=== PATIENT | male | born 1965 | race Hispanic/Latino ===

== ENCOUNTER 2017-02-07 16:06 | Emergency (ER) | payer OTHER ==
[~2017-02-07] VITALS: Ht 180.3 cm; Wt 73.9 kg
--- NOTE | 2017-02-07 16:25 | ED CARDIAC/CP/PALPITATIONS ---
History of Present Illness General Chief Complaint: Chest Pain Stated Complaint: [facility] Source: patient, family Exam Limitations: language barrier Vital Signs & Intake/Output Vital Signs & Intake/Output Vital Signs Date Time Temp Pulse Resp B/P B/P Pulse O2 O2 Flow FiO2 Mean Ox Delivery Rate 02/07 2108 96.8 73 18 138/90 99 Room Air 02/07 1809 99.2 65 16 138/72 100 Room Air 02/07 1758 100 02/07 1620 98.9 58 15 151/91 100 Room Air ED Intake and Output 02/08 0000 02/07 1200 Intake Total 60 Output Total Balance 60 Intake, Oral 60 Patient 163 lb Weight Weight Reported by Patient Measurement Method Allergies Coded Allergies: No Known Allergies (02/07/17) Triage Note: PT TO ED FOR INTERMITTENT R SIDED CHEST PAIN, ONE EPISODE LAST NIGHT AND ONE EPISODE THIS MORNING, CURRENTLY REPORTING "CHEST PRESSURE" AT 5/10. UNABLE TO IDENTIFY IF ANYTHING MAKES IT BETTER OR WORSE. PT DENIES ASSOCIATED SOB BUT REPORTS "I SOMETIMES GET SOB". 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 Triage Nurses Notes Reviewed? yes Onset: Abrupt Duration: day(s): (1) Timing: multiple episodes today Location: central Radiation: no radiation Activities at Onset: none Prior Chest Pain/Card Workup: cardiac cath (12 YEARS AGO) Aspirin Today: no aspirin today HPI: This is a 51-year-old male with history of glioma status post resection approximately 1-1/2 months ago currently on chemotherapy and radiation that started yesterday who presents to the ER with his daughter for chief complaint of left-sided chest pain. He states that it started yesterday and was strongest morning. At this time pain is better. He did not take anything for pain. It is not worse with anything. Describes any change with position or breathing. No fever chills or cough. History of cardiac cath 12 years ago which he reports is normal. No history of acute RI in the past. He is a former smoker quit about 1-1/2 months ago after arriving from [place] and being diagnosed with glioma. Patient follows up with radiation Dr. Alexandra across the street. His surgery was done at [facility]. Patient denies any recent URI symptoms, sore throat, cough or cold. (DUONG BRAGG MD) Past History Travel History Traveled to [place] past 21 day No Medical History Any Pertinent Medical History? see below for history Neurological: GLIOMA RESECTION Surgical History Surgical History: GLIOMA RESECTION, CARDIAC CATH 12 YEARS AGO Psychosocial History Tobacco Use: Quit >30 days ago ETOH Use: denies use Illicit Drug Use: denies illicit drug use Family History Hx Contributory? No (DUONG BRAGG MD) Review of Systems Review of Systems Constitutional: Denies: chills, fever. EENTM: Reports: blurred vision (LEFT EYE). Respiratory: Denies: cough, short of breath. Cardiovascular: Reports: chest pain. GI: Denies: abdominal pain, nausea, vomiting. Genitourinary: Denies: discharge, dysuria, frequency. Musculoskeletal: Reports: no symptoms. Skin: Reports: no symptoms. Neurological/Psychological: Reports: anxiety, headache. Hematologic/Endocrine: Denies: bruising, bleeding, polyuria, polydipsia. Immunologic/Allergic: Reports: see HPI. All Other Systems: Reviewed and Negative (DUONG BRAGG MD) Physical Exam Physical Exam General Appearance: well developed/nourished, alert, awake, anxious, mild distress Head: CRANIOTOMY SCAR Eyes: Bilateral: normal appearance, PERRL, EOMI. Ears, Nose, Throat: normal pharynx, hearing grossly normal Neck: normal inspection, supple, full range of motion Respiratory: normal breath sounds, no respiratory distress, ANTERIOR TENDER CHEST WALL Cardiovascular: regular rate/rhythm Peripheral Pulses: 2+ radial (R), 2+ radial (L) Gastrointestinal: normal bowel sounds, soft, non-tender Extremities: normal inspection, normal capillary refill, normal range of motion, no edema Neurologic/Psych: no motor/sensory deficits, awake, alert, oriented x 3 Skin: intact, normal color, warm/dry Core Measures ACS in differential dx? Yes ASA ordered for poss ACS? Yes-ordered Severe Sepsis Present: No Septic Shock Present: No (DUONG BRAGG MD) Progress Differential Diagnosis: AMI, myocarditis, pancreatitis, pericarditis, pneumonia, pneumothorax, pulmonary embolism, PUD/GERD, unstable angina Plan of Care: Orders Procedure Date/time Status Heart Healthy Diet 02/08 B Active TROPONIN LEVEL 02/080 Complete EKG 02/08 100 Active TROPONIN LEVEL 02/08 2000 Complete EKG 02/08 2000 Active Add-on Test (ER Only) 02/07 165 Active D-DIMER 02/07 165 Complete TROPONIN LEVEL 02/08 1616 Complete PARTIAL THROMBOPLASTIN TIME 02/08 1616 Complete PROTHROMBIN TIME 02/08 1616 Complete COMPREHENSIVE METABOLIC PANEL 02/08 1616 Complete CBC WITHOUT DIFFERENTIAL 02/08 1616 Complete EKG 02/07 1607 Active Laboratory Tests 02/08/17 0115: Troponin I < 0.01 02/07/171999: Troponin I < 0.01 02/07/17 1650: Anion Gap 9, Estimated GFR > 60, BUN/Creatinine Ratio 7.5, Glucose 98, Calcium 9.3, Total Bilirubin 0.6, AST 28, ALT 43, Alkaline Phosphatase 61, Troponin I < 0.01, Total Protein 6.6, Albumin 4.1, Globulin 2.5, Albumin/Globulin Ratio 1.6, PT 11.2, INR 1.07, APTT 28, D-Dimer 284 H, CBC w Diff NO MAN DIFF REQ, RBC 4.22 L, MCV 91.5, MCH 30.8, RDW 15.0 H, MPV 7.0 L, Gran % 67.9, Lymphocytes % 21.4 , Monocytes % 9.7 H, Eosinophils % 0.5, Basophils % 0.5, Absolute Granulocytes 8.2 H, Absolute Lymphocytes 2.6, Absolute Monocytes 1.2 H, Absolute Eosinophils 0.1, Absolute Basophils 0.1, PUBS MCHC 33.7 Diagnostic Imaging: Viewed by Me: CT Scan. Discussed w/RAD: CT Scan. Radiology Impression: PATIENT: MARTHA SAUL PRESENT AGE: 51 PATIENT ACCOUNT NO: [id number] : 63 LOCATION: [facility] ORDERING PHYSICIAN: DUONG BRAGG MD SERVICE DATE: 02/07/17 EXAM TYPE: CAT - CT HEAD WO IV CONTRAST EXAMINATION: CT HEAD WITHOUT CONTRAST CLINICAL INFORMATION: Status post glioma resection one month ago. Rule out bleed. COMPARISON: Outside study from 01/27/2017. TECHNIQUE: Contiguous axial imaging was performed from the skull base to vertex without intravenous contrast. DLP: 620 mGy-cm. FINDINGS : Right parietal craniotomy. There is an area of hypoattenuation measuring 2.3 x 1.3 cm and the right paramedian frontal lobe with linear extension peripherally to the area of the craniotomy. No definite extra-axial collection. There is no evidence of acute parenchymal hemorrhage or territorial infarction. No abnormal mass effect or midline shift is seen. Castillo to white matter differentiation is well preserved. No hydrocephalus. No significant volume loss. No additional abnormal parenchymal attenuation. No acute osseous or soft tissue abnormality. The mastoid air cells and visualized portions of the paranasal sinuses are well aerated. IMPRESSION: Right parietal craniotomy with associated hypoattenuation in the right frontal lobe suggestive of a resection cavity associated with prior glioma resection. No acute intracranial hemorrhage visualized. Grossly similar appearance to the CT performed 01/27/2017. DICTATED BY: DALE THOMAS MD DATE/TIME DICTATED:02/07/171708 BRAKES INSPECTOR:JASON DATE/TIME TRANSCRIBED:02/07/171708 CONFIDENTIAL, DO NOT COPY WITHOUT APPROPRIATE AUTHORIZATION. <Electronically signed in Other Vendor System> SIGNED BY: DALE THOMAS MD 02/07/171716 Initial ED EKG: NSR (DIFFUSE st ELEVATION) Rhythm Strip: normal sinus rhythm Hand-Off Endorsed To: SAMUEL OREILLY MD Endorsed Time: 1899 Pending: EKG, labs (TROPONIN) (AKHIL PADRON,DUONG) Repeat EKG: unchanged Comments: 02/07/2017 8:49:27 PM patient signed out to me by Dr. Bragg at shift jacket changer. 02/07/2017 9:10:08 PM I have updated martha on his test results. He is pain- free at this point. He has had 2 episodes of substernal chest pressure with associated shortness of breath. He denies any associated jaw pain or left forearm pain (he has had left forearm numbness as a results of a recent glioma resection). I am paging the on-call director volunteer services given this patient's age history of hypertension and clinical presentation. 02/07/2017 9:21:33 PM I have discussed this patient's case with Dr. Mayer, including the 2 troponin levels and 2 EKGs. We have also discussed patient's risk factors (age, history of hypertension, history of smoking). Given that the patient's most recent episode of chest pain ended around dinner, Dr. Mayer recommends one more troponin level. If this is normal the patient can be discharged with outpatient follow-up. (RUBY PADRON,SAMUEL Bell) Departure Departure Condition: Stable Clinical Impression Primary Impression: Chest pain at rest Referrals: PATIENT HAS NO PRIMARY CARE DR (PCP/Family) Departure Forms: Customer Survey General Discharge Information (DUONG BRAGG MD) Departure Disposition: HOME OR SELF CARE Additional Instructions: Follow up with Dr. Mayer this week for reevaluation. Rest, no exertion. Return if any concerns or sudden worsening. Please note that there might be incidental findings in your evaluation that are unrelated to the current emergency department visit. Please notify your primary care doctor about this emergency department visit in order to obtain and review all of the testing performed so that these incidental findings can be monitored as needed. If you had an x-ray performed, please understand that some fractures may not be seen on the initial set of x-rays. If your symptoms persist you might need a repeat set of x-rays to check for such a fracture. If you had a laceration evaluated, please understand that foreign bodies such as glass or wood may not be visible to the naked eye or on plain x-rays. If the wound becomes red, swollen, increasingly more painful or if there is any drainage from the wound, please have it reevaluated by a physician for the possibility of a retained foreign body. Thank you for choosing the [facility] Emergency Department for your care. It was a pleasure to serve you today. Samuel Oreilly M.D. [facility] (RUBY PADRON,SAMUEL Bell) Critical Care Note Critical Care Note Critical Care Time: non-applicable (DUONG BRAGG MD)
--- NOTE | 2017-02-07 17:17 | CT SCAN REPORT ---
EXAMINATION: CT HEAD WITHOUT CONTRAST CLINICAL INFORMATION: Status post glioma resection one month ago. Rule out bleed. COMPARISON: Outside study from 01/27/2017. TECHNIQUE: Contiguous axial imaging was performed from the skull base to vertex without intravenous contrast. DLP: 620 mGy-cm. FINDINGS: Right parietal craniotomy. There is an area of hypoattenuation measuring 2.3 x 1.3 cm and the right paramedian frontal lobe with linear extension peripherally to the area of the craniotomy. No definite extra-axial collection. There is no evidence of acute parenchymal hemorrhage or territorial infarction. No abnormal mass effect or midline shift is seen. Castillo to white matter differentiation is well preserved. No hydrocephalus. No significant volume loss. No additional abnormal parenchymal attenuation. No acute osseous or soft tissue abnormality. The mastoid air cells and visualized portions of the paranasal sinuses are well aerated. IMPRESSION: Right parietal craniotomy with associated hypoattenuation in the right frontal lobe suggestive of a resection cavity associated with prior glioma resection. No acute intracranial hemorrhage visualized. Grossly similar appearance to the CT performed 01/27/2017.
[2017-02-07 17:30] LABS: ABSOLUTE BASOPHIL COUNT 0.1 /CUMM (0.0-0.2); ABSOLUTE EOSINOPHIL COUNT 0.1 /CUMM (0.0-0.7); ABSOLUTE GRANULOCYTE CT 8.2 /CUMM (1.4-6.5); ABSOLUTE LYMPH COUNT 2.6 /CUMM (1.2-3.4); ABSOLUTE MONOCYTE COUNT 1.2 /CUMM (0.10-0.60); BASOPHIL % 0.5 % (0.0-2.0); EOSINOPHIL % 0.5 % (0-5); GRANULOCYTE % 67.9 % (42.2-75.2); HEMATOCRIT 38.6 % (42-52); MEAN CORPUSCULAR HGB 30.8 PG (27.0-31.0); MEAN CORPUSCULAR HGB CONC 33.7 G/DL (33.0-37.0); MEAN CORPUSCULAR VOLUME 91.5 FL (80.0-94.0); PLATELET COUNT 368 /CUMM (130-400); RED BLOOD CELL CT 4.22 /CUMM (4.70-6.10); WHITE BLOOD CELL COUNT 12.1 /CUMM (4.8-10.8)
[2017-02-07 17:45] LABS: PT 11.2 SEC (9.4-12.5); PTT 28 SEC (25-37)
[2017-02-08 05:58] VITALS: BP 127/76
== END 2017-02-08 06:14 ==
LOC: ERH 16:06
PROVIDERS: Emergency Medicine
DX: R07.9 Chest pain, unspecified (principal)
CPT/HCPCS: 93005; 93010